=== PATIENT | male | born 1995 | race Asian ===

== ENCOUNTER 2019-09-22 00:22 | Emergency (ER) | payer OTHER ==
[2019-09-22] MEDS ORDERED: NS 0.9% 1000 ML** 1,000 ML IV ONE (00:37)
--- NOTE | 2019-09-22 00:41 | ED ---
Shortness of Breath - HPI Summary HPI Summary: 24 y/o M presenting to [facility] for evaluation of two days of cough which is dry in nature. Today he developed some anterior CP while sitting at his computer around 20:00, causing him to feel slightly short of breath. States he does not feel well. No aggravating or alleviating factors. Denies any fevers, vomiting, diarrhea, or sore throat. No unilateral leg pain/swelling. No recent travel. No known sick contacts. No FHx cardiac disease. No PMHx, no surgeries. Medications reviewed. Allergies noted. - History of Current Complaint Time Seen by Provider: 09/22/19 00:24 Hx Obtained From: Patient Onset/Duration: Gradual Onset, Lasting Days - two, Still Present Dyspnea At: Rest Aggravating Factors: Nothing Alleviating Factors: Nothing Associated Signs & Symptoms: Cough (Nonproductive), Chest Pain Unrelated to Cough - Allergy/Home Medications Allergies/Adverse Reactions: Allergies Allergy/AdvReac Type Severity Reaction Status Date / Time No Known Allergies Allergy Verified 09/22/19 00:45 Home Medications: Home Medications NK [No Home Medications Reported] 09/22/19 [History Confirmed 09/22/19] PMH/Surg Hx/FS Hx/Imm Hx Endocrine/Hematology History: Denies: Hx Diabetes Respiratory History: Denies: Hx Asthma - Surgical History Surgical History: None Surgery Procedure, Year, and Place: none - Family History Known Family History: Negative: Cardiac Disease - Social History Alcohol Use: None Hx Substance Use: No Substance Use Type: Reports: None Hx Tobacco Use: No Smoking Status (MU): Never Smoked Tobacco Review of Systems Negative: Fever Negative: Sore Throat Positive: Chest Pain - anterior Positive: Shortness Of Breath, Cough - dry Negative: Vomiting, Diarrhea Negative: Edema - or pain in either leg All Other Systems Reviewed And Are Negative: Yes Physical Exam - Summary Physical Exam Summary: Constitutional: Well-developed, Well-nourished, Alert. (-) Distressed Skin: Warm, Dry HENT: Normocephalic; Atraumatic Eyes: Conjunctiva normal Neck: Musculoskeletal ROM normal neck. (-) JVD, (-) Stridor, (-) Tracheal deviation Cardio: Rhythm regular, rate tachycardic at 100-120 BPM, Heart sounds normal; Intact distal pulses; Radial pulses are 2+ and symmetric. (-) Murmur Pulmonary/Chest wall: Effort normal. Satting at 93-95% on RA. (-) Respiratory distress, (-) Wheezes, (-) Rales Abd: Soft, (-) tenderness, (-) Distension, (-) Guarding, (-) Rebound Musculoskeletal: (-) Edema Lymph: (-) Cervical adenopathy Neuro: Alert, Oriented x3 Psych: Mood and affect Normal Triage Information Reviewed: Yes Vital Signs Reviewed: Yes Procedures - Sedation Patient Received Moderate/Deep Sedation with Procedure: No Diagnostics - Laboratory Result Diagrams: 09/22/19 01:08 09/22/19 01:08 Lab Statement: Any lab studies that have been ordered have been reviewed, and results considered in the medical decision making process. - Radiology CXR Radiology Interpretation Completed By: ED Physician Summary of Radiographic Findings: Poor inspiratory effort. No obvious acute findings. Dr. Chavira has reviewed and interpreted this imaging scan, pending official read. - EKG 0054 Cardiac Rate: NL - 84 BPM EKG Rhythm: Sinus Rhythm Summary of EKG Findings: NSR at rate of 84 BPM. T wave flattening in lead III. No STEMI. Dr. Chavira has reviewed and interpreted this EKG. Re-Evaluation - Re-Evaluation First Eval Re-Evaluation Time: 01:45 Change: Improved Comment: HR in the 80s, satting in the upper 90s on RA. Discussed discharge plan. Course/Dx - Course Course Of Treatment: Patient is here with cough and chest pain. Patient was initially tachycardic upon arrival and borderline hypoxic. Due to this, a workup was performed. Patient had an EKG which showed normal sinus rhythm with no ischemic changes. Patient had a negative d-dimer in the setting of low PE risk factors. Patient had a negative troponin. The patient had negative chest x-ray. Given patient's symptoms, he was tested for Covid 19. Patient became normocardiac and had better oxygenation without any intervention. - Diagnoses Provider Diagnoses: Cough, Chest pain Discharge ED - Sign-Out/Discharge Documenting (check all that apply): Patient Departure - Patient will be discharged home. - Discharge Plan Condition: Stable Disposition: HOME Patient Education Materials: Chest Pain (DC), Acute Cough (ED) Forms: COVID-19 Tested & Isolation Referrals: [facility] [Provider Group] - 3 Days Additional Instructions: Follow up with [facility] in 2-3 days. Please take Tylenol for pain. You were seen in the emergency department for coronavirus rule out. The department of health will contact you within 24 hours. Due to the pandemic, you should stay in your house and self quarantine. See the separate quarantine paper for further instructions. You should wear a mask if you're outside of your personal room. We encourage handwashing as well as limited contact with other people including the elderly and the immunocompromised. If any studies were not completed at the time of discharge you will be called with the relevant results. Return to emergency department for severe trouble breathing feeling like you need to stay in the hospital, worsening or concerning symptoms. It was a pleasure taking care of you today. - Billing Disposition and Condition Condition: STABLE Disposition: Home - Attestation Statements Document Initiated by Magda: Yes Documenting Scribe: Marce Agarwal Provider For Whom Magda is Documenting (Include Credential): Reynold Chavira MD Scribe Attestation: Marce Sharpe, scribed for Reynold Chavira MD on 09/22/19 at 0300. Scribe Documentation Reviewed: Yes Provider Attestation: The documentation as recorded by the Marce blackwell accurately reflects the service I personally performed and the decisions made by me, Reynold Chavira MD Status of Scribe Document: Viewed
[2019-09-22 01:25] LABS: ABS Eosinophils 0.1 10^3/ul (0-0.6); ABS Lymphocytes 1.9 10^3/ul (1.0-4.8); ABS Monocytes 0.5 10^3/ul (0-0.8); Eosinophil % 0.8 %; Hematocrit 47 % (42-52); Lymphocyte % 22.7 %; Mean Corpuscular HGB Conc 34 g/dL (31-36); Mean Corpuscular Hemoglobin 31 pg (27-31); Mean Corpuscular Volume 90 fL (80-94); Mean Platelet Volume 9.7 fL (7.4-10.4); Nucleated Red Blood Cells % 0.1; Platelet Count 178 10^3/uL (150-450); Red Blood Count 5.16 10^6 /uL (4.18-5.48); Red Cell Distribution Width 13 % (10-15); White Blood Count 8.6 10^3/uL (3.5-10.8)
[2019-09-22 01:37] LABS: Albumin 4.4 g/dL (3.2-5.2); Albumin/Globulin Ratio 1.5 (1-3); BUN/Creatinine Ratio 12.3 (8-20); C Reactive Protein 1.86 mg/L (<8.01); Calcium 9.2 mg/dL (8.6-10.3); EGFR African American 104.8 (>60); EGFR Non-African American 86.6 (>60); Globulin 2.9 g/dL (2-4); Total Bilirubin 0.4 mg/dL (0.2-1.0); Total Protein 7.3 g/dL (6.4-8.9)
[2019-09-22 01:51] LABS: Potassium 3.8 mmol/L (3.5-5.0)
[2019-09-22 02:26] VITALS: BP 174/105
== END 2019-09-22 02:25 | disposition home or self-care (01) ==
LOC: ED 00:22
DX: R05 Cough (principal); R07.9 Chest pain, unspecified
CPT/HCPCS: 36415; 71045; 80053; 83605; 84484; 85025; 85379; 86140; 87635; 93005; 99284; G2023